=== PATIENT | male | born 1995 | race African-American/Black ===

== ENCOUNTER 2022-12-10 20:39 | Inpatient (IN) | payer OTHER ==
[~2022-12-10] VITALS: Ht 190.5 cm; Wt 81.2 kg
[2022-12-10 20:00] VITALS: BP 154/89
[2022-12-10] MEDS ORDERED: ACETAMINOPHEN 325 MG TABLET PO PRN (21:30)
[2022-12-10] MEDS ORDERED: MAGNESIUM HYDROXIDE 30 ML UDC PO PRN (21:30)
[2022-12-10] MEDS ORDERED: ONDANSETRON HCL/PF 4 MG/2 ML VIAL IVP PRN (21:30)
[2022-12-10] MEDS ORDERED: HYDROCODONE/APAP 10/325MG TABLET PO PRN (21:30)
[2022-12-10] MEDS ORDERED: ZOLPIDEM TARTRATE 5 MG TABLET PO PRN (21:30)
[2022-12-10] MEDS ORDERED: Z GUARD REMEDY 4 OZ OINT TP PRN (21:30)
[2022-12-10] MEDS ORDERED: MAG HYDROX/AL HYDROX/SIMETH 30 ML UDC PO PRN (21:30)
[2022-12-10] MEDS: IV NS 0.9% 1,000 ML IV PRN (23:23)
[2022-12-10] MEDS: MORPHINE SULFATE INJ 2 MG/ML DISP.SYRIN IV PRN (23:23)
[2022-12-11] MEDS: MORPHINE SULFATE INJ 2 MG/ML DISP.SYRIN IV PRN ×3 (04:06→12:26)
[2022-12-11] MEDS ORDERED: CEFAZOLIN 1 GM ONE (05:25)
[2022-12-11] MEDS: CEFAZOLIN 1 GM in IV D5W 50 ML IV SCH ×2 (05:39→13:12)
[2022-12-11 05:59] LABS: BASOPHILS # (AUTO) 0.1 K/uL (0.0-0.2); BASOPHILS % (AUTO) 0.8 % (0.0-2.0); EOSINOPHILS % (AUTO) 0.5 % (0.0-6.0); HEMATOCRIT 35 % (39-51); HEMOGLOBIN 11.4 g/dL (13.5-17.5); LYMPHOCYTES # (AUTO) 2.6 K/uL (0.8-4.8); MEAN CORPUSCULAR HGB CONC 33 g/dl (31.0-36.0); MEAN CORPUSCULAR VOLUME 88 fL (80-96); MONOCYTES # (AUTO) 0.9 K/uL (0.1-1.30); MONOCYTES % (AUTO) 12.4 % (2.0-12.0); NEUTROPHILS # (AUTO) 3.4 K/uL (1.8-8.9); NEUTROPHILS % (AUTO) 49.3 % (43.0-81.0); PLATELET COUNT (AUTO) 198 K/uL (150-450)
[2022-12-11 06:21] LABS: CALCIUM, SERUM 8.7 mg/dL (8.5-10.1); CREATININE 0.7 mg/dL (0.6-1.3); MAGNESIUM 1.9 mg/dL (1.8-2.4); POTASSIUM 3.9 mmol/L (3.5-5.1)
[2022-12-11 07:00] VITALS: BP 129/76
[2022-12-11] MEDS ORDERED: ANESTHESIA TRAY IN PYXIS 1 EA TRAY MC ONE (15:18)
[2022-12-11] MEDS: IV NS 0.9% 1,000 ML IV PRN (16:02)
[2022-12-11] MEDS ORDERED: BUPIVACAINE 0.25% 75 MG/30 ML VIAL ONE (17:02)
[2022-12-11] MEDS ORDERED: FENTANYL PF 250MCG/5ML AMPUL ONE (17:11)
[2022-12-11] MEDS ORDERED: MIDAZOLAM HCL 2 MG/2ML VIAL ONE (17:11)
[2022-12-11] MEDS ORDERED: BUPIVACAINE 0.5 % PF 150 MG/30 ML VIAL ONE (17:12)
[2022-12-11] MEDS ORDERED: MEPERIDINE25 MG SYR 25 MG/ML VIAL ONE (19:33)
[2022-12-11] MEDS ORDERED: DOCUSATE SODIUM 100 MG CAPSULE PO PRN (20:30)
[2022-12-11] MEDS ORDERED: ACETAMINOPHEN 325 MG TABLET PO PRN (20:30)
[2022-12-11] MEDS ORDERED: DOCUSATE SODIUM 250 MG CAPSULE PO PRN (20:30)
[2022-12-11] MEDS ORDERED: HYDROCODONE/APAP 5/325MG TABLET PO PRN (20:30)
[2022-12-11] MEDS ORDERED: BISACODYL SUPP (10 MG) 10 MG/SUPP.RECT SUPP.RECT RC PRN (20:30)
[2022-12-11] MEDS ORDERED: SENNOSIDES 8.6 MG TABLET PO PRN ×2 (20:30)
[2022-12-11 21:31] LABS: HEMOGLOBIN 12.3 g/dL (13.5-17.5)
[2022-12-11] MEDS: ENOXAPARIN SODIUM 40 MG/0.4 ML DISP.SYRIN SQ SCH (21:31)
[2022-12-12] MEDS: MORPHINE SULFATE INJ 4 MG/ML DISP.SYRIN IV PRN ×2 (01:00→05:27)
[2022-12-12] MEDS: ANCEF 1 GM/50 ML D5W IV SCH ×4 (01:02→09:14)
[2022-12-12 08:00] VITALS: BP 114/76
[2022-12-12] MEDS: MORPHINE SULFATE INJ 2 MG/ML DISP.SYRIN IV PRN ×3 (10:58→20:30)
[2022-12-12 16:00] VITALS: BP 125/64
[2022-12-12] MEDS: IV NS 0.9% 1,000 ML IV PRN (16:39)
[2022-12-12 20:00] VITALS: BP 134/72
[2022-12-12] MEDS: ENOXAPARIN SODIUM 40 MG/0.4 ML DISP.SYRIN SQ SCH (21:22)
[2022-12-13] MEDS: MORPHINE SULFATE INJ 2 MG/ML DISP.SYRIN IV PRN ×5 (00:27→22:06)
[2022-12-13] MEDS: IV NS 0.9% 1,000 ML IV PRN (04:01)
[2022-12-13 20:29] VITALS: BP 121/64
[2022-12-13] MEDS: ENOXAPARIN SODIUM 40 MG/0.4 ML DISP.SYRIN SQ SCH (21:25)
[2022-12-14] MEDS: HYDROCODONE/APAP 5/325MG TABLET PO PRN ×4 (04:19→19:36)
[2022-12-14 08:25] VITALS: BP 124/64
[2022-12-14] MEDS: MORPHINE SULFATE INJ 2 MG/ML DISP.SYRIN IV PRN (16:04)
[2022-12-14 16:12] VITALS: BP 110/64
[2022-12-14 20:00] VITALS: BP 110/52
[2022-12-14] MEDS: ENOXAPARIN SODIUM 40 MG/0.4 ML DISP.SYRIN SQ SCH (20:45)
[2022-12-15] MEDS: HYDROCODONE/APAP 5/325MG TABLET PO PRN ×4 (02:19→20:45)
[2022-12-15 08:00] VITALS: BP 113/55
[2022-12-15 16:00] VITALS: BP 114/65
[2022-12-15 20:00] VITALS: BP 111/60
[2022-12-15] MEDS: ENOXAPARIN SODIUM 40 MG/0.4 ML DISP.SYRIN SQ SCH (20:43)
[2022-12-16] MEDS: HYDROCODONE/APAP 5/325MG TABLET PO PRN ×4 (02:47→20:36)
[2022-12-16 07:00] VITALS: BP 121/68
[2022-12-16 16:00] VITALS: BP 144/69
[2022-12-16 20:00] VITALS: BP 121/58
[2022-12-16] MEDS: ENOXAPARIN SODIUM 40 MG/0.4 ML DISP.SYRIN SQ SCH (20:17)
[2022-12-17] MEDS: HYDROCODONE/APAP 5/325MG TABLET PO PRN ×4 (02:28→20:31)
[2022-12-17 08:04] VITALS: BP 124/65
[2022-12-17 15:26] VITALS: BP 129/65
[2022-12-17 20:00] VITALS: BP 123/72
[2022-12-17] MEDS: ENOXAPARIN SODIUM 40 MG/0.4 ML DISP.SYRIN SQ SCH (20:30)
[2022-12-18] MEDS: HYDROCODONE/APAP 5/325MG TABLET PO PRN ×2 (06:43→14:01)
[2022-12-18 08:16] VITALS: BP 123/89
== END 2022-12-18 14:41 | DRG 308 ==
LOC: MED 20:39
PROVIDERS: ADMIT Nurse Practitioner Acute Care; ATTEND Nurse Practitioner Acute Care
PROC: 0QS906Z Reposition Left Femoral Shaft with Intramedullary Internal Fixation Device, Open Approach (ICD-10-PCS; principal; 2022-12-10)
DX: S72.322A Displaced transverse fracture of shaft of left femur, initial encounter for closed fracture (principal); E87.6 Hypokalemia; W01.0XXA Fall on same level from slipping, tripping and stumbling without subsequent striking against object, initial encounter; Y93.A1 Activity, exercise machines primarily for cardiorespiratory conditioning; Y92.39 Other specified sports and athletic area as the place of occurrence of the external cause; Y99.8 Other external cause status; Z87.891 Personal history of nicotine dependence; Z59.01 Sheltered homelessness
CPT/HCPCS: 36415; 73552; 73700-TC; 80048-TC; 83735-TC; 84100-TC; 85025-TC; 85027-TC; 85610-TC; 85730-TC; 86850-TC; 87081-TC; 97110-TC; 97112-TC; 97116-TC; 97530-TC; A4223; A6209; A6253; C1713; G0378; J0690; J1100; J1650; J2175; J2250; J2270; J2405; J2704; J3010; J3490; J7030; J7060